=== PATIENT | female | born 1980 | race Caucasian/White ===

== ENCOUNTER 2020-05-09 02:01 | Inpatient (IN) ==
[2020-05-09 06:15] LABS: ABG Base Excess -5.6 MMOL/L (-2.5-2.5); ABG HCO3 18.3 MMOL/L (20-26); ABG Oxygen Saturation 98.8 % (95-100); ABG PH 7.376 (7.35-7.45); ABG TCO2 19.3 MMOL/L (23-27)
[2020-05-09 06:37] LABS: Basophils % 0.2 % (0.0-0.8); Hematocrit 47.8 VOL% (35.7-47.0); Hemoglobin 15.8 GM/DL (12.0-16.0); Immature Granulocytes % 0.5 %; Immature Granulocytes Absolute 0.07 #; Lymphocytes # 0.7 10*3/uL (1.4-4.0); Lymphocytes % 4.3 % (21.3-54.2); Mean Corpuscular HGB Conc 33.1 GM/DL (32-36); Mean Corpuscular Volume 102.8 FL (87-102); Mean Platelet Volume 9.4 FL (9.6-12.0); Monocytes % 3.5 % (1.7-12.7); Neutrophils % 91.5 % (38.7-73.9); Platelet Count 243 T/CUMM (130-400); Red Blood Count 4.65 MC/CUMM (3.8-5.5); Red Cell Distribution Width 13.1 % (9.3-17.3); White Blood Count 15.5 T/CUMM (4-12)
[2020-05-09 06:49] LABS: Calcium 8.2 MG/DL (8.5-10.1); Osmolality,Calculated 287.7 MOS/KG (273-304)
[2020-05-09 07:58] LABS: Band Neutrophils 3 % (0-10); Hypochromasia 1+; Lymphocytes 8 % (20-55); Microcytosis Slight; Platelet Estimate Normal; Segmented Neutrophils 87 % (50-85); Total Cells Counted 100
[2020-05-09] MEDS ORDERED: METOPROLOL TARTRATE 5 MG/5 ML VIAL IV PRN (08:11)
[2020-05-09] MEDS ORDERED: ONDANSETRON 4 MG/2 ML VIAL IV PRN (08:12)
[2020-05-09] MEDS ORDERED: DEXTROSE 50% 25 GM/50 ML VIAL IV PRN (08:12)
[2020-05-09] MEDS ORDERED: GLUCAGON 1 MG VIAL IM PRN (08:12)
[2020-05-09] MEDS ORDERED: cloNIDine 0.3 MG/24 HR PATCH TRANSDERM SCH (09:00)
[2020-05-09] MEDS: PANTOPRAZOLE 40 MG VIAL IV SCH (09:30)
[2020-05-09] MEDS: LACTATED RINGERS 1,000 ML IV SCH ×3 (10:10→22:11)
[2020-05-09] MEDS ORDERED: hydrALAZINE 20 MG/1 ML VIAL IV ONE (10:34)
[2020-05-09] MEDS ORDERED: METOPROLOL TARTRATE 5 MG/5 ML VIAL IV ONE (11:00)
[2020-05-09] MEDS: INSULIN LISPRO 100 UNIT/ML SUBCUT SCH ×3 (12:57→23:41)
[2020-05-09] MEDS: CLINDAMYCIN INJ 600 MG in PREMIX 1 EACH IV SCH (17:51)
[2020-05-09] MEDS: ENOXAPARIN 40 MG/0.4 ML SYRINGE SUBCUT SCH (20:44)
[2020-05-10] MEDS: CLINDAMYCIN INJ 600 MG in PREMIX 1 EACH IV SCH ×3 (00:10→16:00)
[2020-05-10] MEDS: LACTATED RINGERS 1,000 ML IV SCH ×5 (01:38→22:03)
[2020-05-10 03:50] LABS: ABG Base Excess -1.6 MMOL/L (-2.5-2.5); ABG HCO3 20.6 MMOL/L (20-26); ABG Oxygen Saturation 98.8 % (95-100); ABG PCO2 28.5 MM HG (35-48); ABG PH 7.477 (7.35-7.45); ABG PO2 140.4 MM HG (80-95); ABG TCO2 21.5 MMOL/L (23-27)
[2020-05-10 04:38] LABS: Basophils % 0.2 % (0.0-0.8); Eosinophils # 0.1 10*3/uL (0.0-0.87); Eosinophils % 0.7 % (0.00-10.9); Hematocrit 44.7 VOL% (35.7-47.0); Hemoglobin 15.2 GM/DL (12.0-16.0); Immature Granulocytes % 0.2 %; Immature Granulocytes Absolute 0.02 #; Lymphocytes # 2.4 10*3/uL (1.4-4.0); Lymphocytes % 28.1 % (21.3-54.2); Mean Corpuscular Volume 101.1 FL (87-102); Mean Platelet Volume 9.7 FL (9.6-12.0); Monocytes % 7.5 % (1.7-12.7); Neutrophils % 63.3 % (38.7-73.9); Platelet Count 207 T/CUMM (130-400); Red Blood Count 4.42 MC/CUMM (3.8-5.5); Red Cell Distribution Width 13.1 % (9.3-17.3); White Blood Count 8.4 T/CUMM (4-12)
[2020-05-10 04:54] LABS: Calcium 8.2 MG/DL (8.5-10.1); Osmolality,Calculated 281.1 MOS/KG (273-304)
[2020-05-10] MEDS: INSULIN LISPRO 100 UNIT/ML SUBCUT SCH ×2 (05:41→12:19)
[2020-05-10] MEDS: PANTOPRAZOLE 40 MG VIAL IV SCH (08:26)
[2020-05-10] MEDS ORDERED: LORazepam 2 MG/1 ML VIAL IV PRN (11:36)
[2020-05-10] MEDS ORDERED: amLODIPine 5 MG TABLET PO ONE (12:37)
[2020-05-10 12:51] LABS: Bilirubin,Direct 0.11 MG/DL (0.0-0.20); Bilirubin,Indirect 1.6 MG/DL (0.0-1.0); Bilirubin,Total 1.7 MG/DL (0.2-1.0); Total Protein 6.1 G/DL (6.4-8.3)
[2020-05-10] MEDS ORDERED: ACETAMINOPHEN 325 MG TABLET PO PRN (13:33)
[2020-05-10] MEDS ORDERED: PHENOL 1.4% THROAT SPRAY 177 ML BOTTLE PO PRN (15:40)
[2020-05-10] MEDS ORDERED: NICOTINE 14 MG/24 HR PATCH TRANSDERM SCH (22:04)
[2020-05-10] MEDS: ENOXAPARIN 40 MG/0.4 ML SYRINGE SUBCUT SCH (22:22)
[2020-05-10] MEDS: NICOTINE 14 MG/24 HR PATCH TRANSDERM SCH (22:24)
[2020-05-11] MEDS: CLINDAMYCIN INJ 600 MG in PREMIX 1 EACH IV SCH ×2 (01:32→07:58)
[2020-05-11] MEDS: LACTATED RINGERS 1,000 ML IV SCH (07:59)
[2020-05-11] MEDS: PANTOPRAZOLE 40 MG VIAL IV SCH (08:00)
[2020-05-11] MEDS: NICOTINE 14 MG/24 HR PATCH TRANSDERM SCH (08:00)
[2020-05-11] MEDS ORDERED: diphenhydrAMINE CAP 25 MG CAPSULE PO ONE (08:19)
[2020-05-11] MEDS ORDERED: buPROPion 75 MG TABLET PO SCH (09:00)
[2020-05-11] MEDS ORDERED: amLODIPine 5 MG TABLET PO SCH (09:00)
[2020-05-11 09:40] LABS: Basophils % 0.6 % (0.0-0.8); Eosinophils # 0.1 10*3/uL (0.0-0.87); Eosinophils % 1.8 % (0.00-10.9); Hemoglobin 12.9 GM/DL (12.0-16.0); Immature Granulocytes % 0.4 %; Immature Granulocytes Absolute 0.02 #; Lymphocytes # 1.4 10*3/uL (1.4-4.0); Lymphocytes % 24.9 % (21.3-54.2); Mean Corpuscular HGB Conc 33.1 GM/DL (32-36); Mean Corpuscular Volume 102.1 FL (87-102); Mean Platelet Volume 9.8 FL (9.6-12.0); Monocytes % 7.6 % (1.7-12.7); Neutrophils % 64.7 % (38.7-73.9); Platelet Count 201 T/CUMM (130-400); Red Blood Count 3.82 MC/CUMM (3.8-5.5); Red Cell Distribution Width 12.8 % (9.3-17.3); White Blood Count 5.4 T/CUMM (4-12)
[2020-05-11 09:45] VITALS: BP 115/78
[2020-05-11 10:51] LABS: Albumin 2.7 G/DL (3.4-5.0); Bilirubin,Total 1.1 MG/DL (0.2-1.0); Osmolality,Calculated 277.4 MOS/KG (273-304)
[2020-05-11 10:59] LABS: Total Protein 5.8 G/DL (6.4-8.3)
[2020-05-11] MEDS: POTASSIUM CHLORIDE 20 MEQ TABLET PO PRN ×2 (12:10→13:42)
[2020-05-11] MEDS ORDERED: NICOTINE 14 MG/24 HR PATCH TRANSDERM SCH (22:00)
== END 2020-05-11 15:52 | disposition home or self-care (01) | DRG 917 ==
LOC: N.ICU 05:32 → SUATTDRO 05:32
PROVIDERS: ADMIT Internal Medicine; ATTEND Internal Medicine